=== PATIENT | female | born 1980 | race African-American/Black ===

== ENCOUNTER 2023-04-04 14:56 | Emergency (ER) | payer OTHER, SELFPAY ==
[2023-04-04 16:15] LABS: SARS-CoV-2 NAA Rapid Test DETECTED (NotDetected)
== END 2023-04-04 17:21 | disposition home or self-care (01) ==
LOC: CSHERS 14:56
DX: U07.1 COVID-19 (principal); F17.210 Nicotine dependence, cigarettes, uncomplicated; I10 Essential (primary) hypertension
CPT/HCPCS: 99283

== ENCOUNTER 2023-04-10 16:20 | Emergency (ER) | payer SELFPAY | END 2023-04-10 18:23 | disposition home or self-care (01) | LOC: CSHERS 16:20 | DX: H01.001 Unspecified blepharitis right upper eyelid (principal); H01.002 Unspecified blepharitis right lower eyelid; I10 Essential (primary) hypertension; F17.210 Nicotine dependence, cigarettes, uncomplicated | CPT/HCPCS: 99282 ==